=== PATIENT | male | born 1970 | race Caucasian/White ===

== ENCOUNTER → 2018-09-05 10:25 | Outpatient (CLI) | payer SELFPAY ==
[2018-09-05 11:23] LABS: Vancomycin,Trough 4.5 mcg/ml (10.0-20.0)
== END ==
PROVIDERS: Visit Provider Internal Medicine Adolescent Medicine
DX: Z51.81 Encounter for therapeutic drug level monitoring (principal)
CPT/HCPCS: 80202

== ENCOUNTER → 2018-09-07 22:01 | Outpatient (CLI) | payer MEDICARE, OTHER, SELFPAY ==
[2018-09-07 23:30] LABS: Vancomycin,Trough 13.9 mcg/ml (10.0-20.0)
== END ==
PROVIDERS: PCP Internal Medicine Adolescent Medicine; Visit Provider Internal Medicine Adolescent Medicine
DX: Z51.81 Encounter for therapeutic drug level monitoring (principal)
CPT/HCPCS: 80202

== ENCOUNTER 2018-10-05 08:00 | Outpatient (RCR) | payer MEDICARE, MEDICAID, OTHER, SELFPAY ==
--- NOTE | 2018-09-28 09:58 | [facility].PTOPWND ---
Rehab Outpt Wound Evaluation Rehab OP Wound Evaluation Start: 09/28/18 08:02 Freq: Status: Active Protocol: Document 09/28/18 09:35 JEAN (Rec: 09/28/18 09:58 PHORNE [id number]) Electronically Signed By Manuel Lund, TOM 09/28/18 09:35 Subjective/History History History Pt is a 47 yowm who presents with multiple chronic pressure ulcers on the buttocks and sacrum x ~ 2-3 yrs. He states, I had a muscle flap before at and that worked really well. They were supposed to do the same thing at [facility], but they did something different and it has been like this since then. The two posterior left hip wounds have significant tunnelling, but all wounds present with full healthy granulation tissue. Drainage appears serosanguineous in nature and in large amounts due to the increased size of the wounds. The pt has hx of paraplegia x 28 yrs and is currently awaiting a new roho cushion for his w/c. He reports no other significant PMH. Subjective Subjective He reports chronic pain, but no acute pain during dressing changes. Wound Eval Wound Left Posterior Lateral Buttock Wound Type Pressure Ulcer Is This a Chronic Wound Yes Wound Staging Stage IV Query Text:Stage I - Unbroken, red skin, no blanching. Stage II - Skin broken, superficial skin loss involving epidermis alone or also dermis. Partial loss of skin layers. Stage III - Pressure area involves epidermis, dermis and subcutaneous tissue, full thickness skin loss. Stage IV - Pressure area involves epidermis, subcutaneous tissue, bone and other supportive tissue. Full thickness skin loss with extensive destruction of underlying tissue and structures. Wound Length (cm) 10.2 Wound Width (cm) 9.2 Wound Depth (cm) 2.6 Wound Bed Appearance Beefy Red Percentage Granulated (%) 100 Wound Margins Description We
== END 2018-10-05 08:05 | disposition home or self-care (01) ==
LOC: PT 08:00
PROVIDERS: PCP Internal Medicine Adolescent Medicine; Visit Provider Internal Medicine Adolescent Medicine
DX: L89.324 Pressure ulcer of left buttock, stage 4 (principal); R78.81 Bacteremia
CPT/HCPCS: 97163; 97597; 97598

== ENCOUNTER → 2018-10-05 08:27 | Outpatient (CLI) | payer MEDICARE, OTHER, SELFPAY | PROVIDERS: Visit Provider Internal Medicine Adolescent Medicine | DX: L98.411 Non-pressure chronic ulcer of buttock limited to breakdown of skin (principal) | CPT/HCPCS: 87070; 87077; 87186; 87205 ==

== ENCOUNTER → 2018-11-23 19:07 | Outpatient (CLI) | payer MEDICARE, SELFPAY ==
[2018-11-23 19:39] LABS: Amphetamine/Metha Screen,Urine Negative ng/mL (<1000); Barbiturates Screen,Urine Negative ng/mL (<200); Benzodiazepines Screen,Urine Positive ng/mL (<200); Cannabinoid Screen,Urine Positive ng/mL (<50); Cocaine Screen,Urine Negative ng/mL (<300); Methadone Screen,Urine Negative ng/mL (<300); Opiate Screen,Urine Positive ng/mL (<300); Phencyclidine Screen,Urine Negative ng/mL (<25)
== END ==
PROVIDERS: PCP Internal Medicine Adolescent Medicine; Visit Provider Internal Medicine Adolescent Medicine
DX: Z79.899 Other long term (current) drug therapy (principal)
CPT/HCPCS: 80305